=== PATIENT | male | born 1955 | race Caucasian/White ===

== ENCOUNTER 2018-10-21 14:29 | Emergency (ER) | payer BC ==
[2018-10-21 14:52] VITALS: BP 156/88
--- NOTE | 2018-10-21 16:08 | UC ---
Abdominal Pain Male HPI - HPI Summary HPI Summary: Pt presents with c/o left flank and lower abdominal pain that began 2 days ago. Pt reports that the pain began in is left flank, then radiate around to left later abdomen and now is a dull ache in left lower pelvis and side. Pt states that he fels as though he is voiding more frequently but not emptying his bladder. - History of Current Complaint Chief Complaint: UCGU Stated Complaint: URINARY Time Seen by Provider: 10/21/18 15:16 Hx Obtained From: Patient Onset/Duration: Sudden Onset, Lasting Days, Still Present Timing: Constant Severity Initially: Moderate Severity Currently: Mild Pain Intensity: 8 Location: Discrete At: LLQ, Other - left flank Radiates: Yes Radiates to: LLQ Character: Burning, Colicy, Dull, Sharp Alleviating Factor(s): Nothing Associated Signs And Symptoms: Positive: Back Pain, Urinary Symptoms - Risk Factors Testicular Torsion: Negative Cardiac Risk Factors: Hypertension, Elevated Lipids, Prior SC, CAD - Allergies/Home Medications Allergies/Adverse Reactions: Allergies Allergy/AdvReac Type Severity Reaction Status Date / Time [id number] Reductase Allergy Unknown Verified 10/21/18 14:47 Inhibitor Reaction Details Home Medications: Home Medications Hydrochlorothiazide TAB* [Hydrodiuril TAB*] 1 tab PO DAILY 10/21/18 [History Confirmed 10/21/18] Ibuprofen TAB* [Motrin TAB* 600 MG] 600 mg PO Q6H PRN 10/21/18 [History Confirmed 10/21/18] PMH/Surg Hx/FS Hx/Imm Hx Previously Healthy: No Endocrine History: Dyslipidemia Cardiovascular History: Cardiac Disease, Myocardial Infarction Other History Of: Anticoagulant Therapy - Aspirin 81mg daily, plavix 75mg daily - Surgical History Surgical History: Yes Surgery Procedure, Year, and Place: cardiac stent placement at [facility] [place] 2010, other stents x6 placed at [facility] 2009. - Family History Known Family History: Positive: Cardiac Disease - Social History Occupation: Employed Full-time Lives: With Family Alcohol Use: Occasionally Alcohol Amount: 1-2 drinks/month Substance Use Type: None Smoking Status (MU): Former Smoker Have You Smoked in the Last Year: No When Did the Patient Quit Smoking/Using Tobacco: 1976 Review of Systems All Other Systems Reviewed And Are Negative: Yes Constitutional: Positive: Fever - subjective, Chills Skin: Positive: Negative Eyes: Positive: Negative ENT: Positive: Negative Respiratory: Positive: Negative Cardiovascular: Positive: Negative Gastrointestinal: Positive: Abdominal Pain Genitourinary: Positive: Frequency, Urgency, Other - flank pain Motor: Positive: Negative Neurovascular: Positive: Negative Musculoskeletal: Positive: Negative Neurological: Positive: Negative Psychological: Positive: Negative Is Patient Immunocompromised?: No Physical Exam Triage Information Reviewed: Yes Appearance: Well-Appearing Vital Signs: Initial Vital Signs Temp 98.4 F 10/21/18 14:45 Pulse 74 10/21/18 14:45 Resp 18 10/21/18 14:45 BP 156/88 10/21/18 14:45 Pulse Ox 96 10/21/18 14:45 Vital Signs Reviewed: Yes Eye Exam: Normal ENT Exam: Normal Dental Exam: Normal Neck exam: Normal Respiratory Exam: Normal Cardiovascular Exam: Normal Abdominal Exam: Normal Abdomen Description: Positive: Nontender Musculoskeletal Exam: Normal Neurological Exam: Normal Psychological Exam: Normal Skin Exam: Normal Diagnostics - Radiology No standard instances Radiology Interpretation Completed By: Radiologist - IMPRESSION: 0.3 CM LEFT UVJ STONE WITH MILD HYDRONEPHROSIS. DIVERTICULOSIS. Abd Pain Male Course/Dx - Differential Dx/Clinical Impression Differential Diagnosis/HQI/PQRI: Urinary Tract Infection Provider Diagnosis: Kidney stone on left side, Diverticulosis Discharge - Sign-Out/Discharge Documenting (check all that apply): Patient Departure All imaging exams completed and their final reports reviewed: Yes - Discharge Plan Condition: Stable Disposition: HOME Prescriptions: Tamsulosin CAP* [Flomax CAP*] 0.4 mg PO DAILY #4 cap Patient Education Materials: Kidney Stones (ED) Referrals: Carlene Lara MD [Primary Care Provider] - As Soon As Possible - Billing Disposition and Condition Condition: STABLE Disposition: Home
== END 2018-10-21 16:16 | disposition home or self-care (01) ==
LOC: UCCORT 14:29
DX: K57.90 Diverticulosis of intestine, part unspecified, without perforation or abscess without bleeding (principal); N20.0 Calculus of kidney; Z88.8 Allergy status to other drugs, medicaments and biological substances; Z87.891 Personal history of nicotine dependence
CPT/HCPCS: 74176; 81003; 99202; G0463

== ENCOUNTER 2019-01-01 12:48 | Emergency (ER) | payer BC ==
--- NOTE | 2019-01-01 13:38 | UC ---
Knee Pain HPI - HPI Summary HPI Summary: 63 y/o male presents to the urgent care c/o RT knee pain s/p sudden movement while walking at work about 1120AM. Pt reports he heard a pop in the back of his knee and then his knee gave out and then, he was limping b/c of pain. Pt took Advil PO 400mg and a Flexeril PO about 2 hrs. Pt doesn't recall any previous injury in the past. 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 Pt states he had a flared up of his lower back about 1 week ago which got better w / Flexeril PO. 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 Pt states pain is 7 /10 sharp, localized in the posterior knee w/o any radiation. Pt denies numbness or tingling sensation over the lower leg, calf pain, SOB, lower back pain, chest pain, abdominal pain, N/v/d. - History of Current Complaint Stated Complaint: RT KNEE Time Seen by Provider: 01/01/19 13:25 Hx Obtained From: Patient Onset/Duration: Sudden Onset, Lasting Hours - 3 hrs, Still Present Severity Initially: Moderate Severity Currently: Moderate Pain Intensity: 7 Pain Scale Used: 0-10 Numeric Character: Sharp Aggravating Factor(s): Movement, Weight Bearing, Stairs Alleviating Factor(s): Rest, OTC Meds - took advil PO 400mg about 2 hrs ago Associated Signs And Symptoms: Positive: Negative. Negative: Swelling, Bruising , Fever, Weakness, Numbness, Tingling Able to Bear Weight: Yes - Risk Factors Septic Arthritis Risk Factor: Negative Gout Risk Factor: Negative - Allergies/Home Medications Allergies/Adverse Reactions: Allergies Allergy/AdvReac Type Severity Reaction Status Date / Time Bkhmris-Pgt-Ecc Reductase Allergy Unknown Verified 01/01/19 13:45 Inhibitor Reaction Details Home Medications: Home Medications Cyclobenzaprine TAB* [Flexeril 10 MG TAB*] 10 mg PO BID PRN 01/01/19 [History Confirmed 01/01/19] PMH/Surg Hx/FS Hx/Imm Hx Previously Healthy: Yes Endocrine History: Dyslipidemia Cardiovascular History: Hypertension Other Neurological History: Degenerative disc disease, chronic back pain Other History Of: Anticoagulant Therapy - Aspirin 81mg daily, plavix 75mg daily - Surgical History Surgical History: Yes Surgery Procedure, Year, and Place: cardiac stent placement at [facility] [place] 2010, other stents x6 placed at [facility] 2009. - Family History Known Family History: Positive: Cardiac Disease, Hypertension - Social History Occupation: Employed Full-time Lives: With Family Alcohol Use: Occasionally Alcohol Amount: 1-2 drinks/month Substance Use Type: None Smoking Status (MU): Former Smoker Have You Smoked in the Last Year: No When Did the Patient Quit Smoking/Using Tobacco: 1976 Review of Systems All Other Systems Reviewed And Are Negative: Yes Constitutional: Positive: Negative Skin: Positive: Negative Eyes: Positive: Negative ENT: Positive: Negative Respiratory: Positive: Negative Cardiovascular: Positive: Negative Gastrointestinal: Positive: Negative Genitourinary: Positive: Negative Motor: Positive: Negative Neurovascular: Positive: Negative Musculoskeletal: Positive: Decreased ROM - RT knee pain, Other: - RT knee pain s /p injury at work Neurological: Positive: Negative Psychological: Positive: Negative Is Patient Immunocompromised?: No Physical Exam - Summary Physical Exam Summary: Vital Signs Reviewed: Yes General: well developed, well nourished obese male sitting in the examining table w/o any apparent distress Eyes: Positive: Conjunctiva Clear - PERRLA, EOMI, fundi grossly normal ENT: Positive: Normal ENT inspection, Hearing grossly normal, Pharynx normal, TMs normal Neck: Positive: Supple, Nontender, No Lymphadenopathy Respiratory: Positive: Chest nontender, Lungs clear, Normal breath sounds, No respiratory distress Cardiovascular: Positive: RRR, No Murmur, Pulses Normal, Brisk Capillary Refill Abdomen Description: Positive: Nontender, No Organomegaly, Soft. Negative: CVA Tenderness (R), CVA Tenderness (L) Bowel Sounds: Positive: Present Musculoskeletal: Positive: Strength Intact, No Edema, Rt Knee: Pt is able to bear weight and ambulate with limping. No surface trauma, soft tissue swelling , or obvious effusion. No overlying erythema or warmth. The L knee is without obvious asymmetry or deformity when compared with the R knee. Decreased ROM of LF knee due to pain. No tenderness to palpation of the patella, no effusion or ballottement. No tenderness over the infrapatellar tendon. Point tenderness over the medial joint line, No tenderness over the medial or lateral tibial plateaus. No tenderness over the proximal fibular head, No tenderness, fullness or mass of the popliteal fossa. No quadriceps tenderness. No laxity of the ACL. PCL, MCL, or LCL. no collateral ligament laxity to valgus or varus stress. Negative [place]/Drawer sign. Negative Madi. Distal motor and neurovascular status intact. Neurological Exam: Normal Psychological Exam: Normal Skin Exam: Normal Triage Information Reviewed: Yes Knee Pain Course/Dx - Course Course Of Treatment: 63 y/o male presents to the urgent care c/o RT knee pain s/p sudden movement while walking at work about 1120AM. Pt reports he heard a pop in the back of his knee and then his knee gave out and then, he was limping b/c of pain. Pt took Advil PO 400mg and a Flexeril PO about 2 hrs. Pt doesn't recall any previous injury in the past. 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 Pt states he had a flared up of his lower back about 1 week ago which got better w / Flexeril PO. 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 Pt states pain is 7 /10 sharp, localized in the posterior knee w/o any radiation. Pt denies numbness or tingling sensation over the lower leg, calf pain, SOB, lower back pain, chest pain, abdominal pain, N/v/d. Hx obtained. RT knee X-ray ordered: Impression: the right knee demonstrates no fracture or dislocation. Joint spaces all, well-preserved. No evidence of joint effusion is noted as per radiologist. Pt w/ possible karimi cyst or ligament tear or tendinopathy. Pt declined medications for pain at the clinic. Pt knee immobilized with a knee immobilizer. Pt Rx Ibuprofen PO to alleviate symptoms. Pt has crutches at home and advised to use them to avoid weight bearing. Pt advised RICE, take medication for pain and to f/u with her Orthopedic DR Ward in 1-2 days for further treatment. Pt understood and agreed and left the clinic ambulating. - Differential Dx/Diagnosis Differential Diagnosis/HQI/PQRI: Contusion, Fracture (Closed), Gout, Internal Derangement Of Knee, Sprain, Strain, Tendonitis, Other - karimi cyst Provider Diagnosis: Posterior right knee pain Discharge - Sign-Out/Discharge Documenting (check all that apply): Patient Departure - D/C home All imaging exams completed and their final reports reviewed: Yes - Discharge Plan Condition: Stable Disposition: HOME Prescriptions: Ibuprofen TAB* [Motrin TAB* 800 MG] 800 mg PO Q6H PRN #30 tab PRN Reason: Pain Patient Education Materials: Knee Pain (ED) Forms: *Work Release Referrals: Carlene Lara MD [Primary Care Provider] - 2 Days Cathy Ward MD [Medical Doctor] - 1 Day Additional Instructions: 1-Please take Ibuprofen PO q6-8hrs prn after meals as directed to alleviate pain and swelling. 2-Please apply ice, keep your knee immobilized with the knee immobilizer. Avoid weight bearing w/ the crutches you have at home. elevate you knee. 3- Please f/u with Orthopedic DR Ward in 1-2 days for further management to possible karimi cyst or other abnormality w/ posterior knee pain. - Billing Disposition and Condition Condition: STABLE Disposition: Home
[2019-01-01 13:45] VITALS: BP 124/70
== END 2019-01-01 14:40 | disposition home or self-care (01) ==
LOC: UCEAST 12:48
DX: M25.561 Pain in right knee (principal); I10 Essential (primary) hypertension; E78.5 Hyperlipidemia, unspecified; M54.9 Dorsalgia, unspecified; G89.29 Other chronic pain; Z87.891 Personal history of nicotine dependence; E66.9 Obesity, unspecified; Z68.36 Body mass index [BMI] 36.0-36.9, adult; Z79.82 Long term (current) use of aspirin; Z79.01 Long term (current) use of anticoagulants
CPT/HCPCS: 99213; G0463